=== PATIENT | female | born 1955 | race African-American/Black ===

== ENCOUNTER 2017-03-09 17:00 | Emergency (ER) | payer BC ==
[2017-03-09 17:11] VITALS: BP 151/73; BMI 31.3
--- NOTE | 2017-03-09 17:30 | DR.EXTPAIN ---
HPI - Time seen Time seen: 17:30 - PCP Primary Care Physician: STEPHANIE LUNA - HPI Comment HPI Comment: HISTORY BELOW. - Complaint/Symptoms Chief Complaint Doctor Comments: LT KNEE SWOLLEN AND PAINFULL TODAY. PAINFULL SINCE INJURY 2 MONTHS AGO. WORSE TODAY AND ALSO SWOLLEN TODAY. NO NEW INJURY. Chief Complaint:: PT C/O LEFT KNEE PAIN , PTS PAIN STARTED 3 MONTHS AGO WHEN HER BODY FELL OUT OF ALIGNMENT ,,,, Self Treatment fo Chief Complaint: LEG BAND , ICE , ALEIVE.. - Nurses notes reviewed Nurses Notes Review: Yes - Source History Provided: Patient - Mode of arrival Mode of Arrival: Ambulatory - Timing Onset of Chief Complaint: 12/08/16 - Context History of: None - Associated signs and symptoms Associated Signs and Symptoms: Pain, Swelling PMH - PMH Past Medical History: Yes Past Medical History: Hypertension Past Surgical History: Yes Surgical History: Hysterectomy Past Surgical History Comment: LYMPHOME - Family History History of Family Medical Conditions: No - Social History Does patient currently use any type of tobacco product: No Have you used tobacco products in the last 12 months: No Type of Tobacco Use: None Does any household member use tobacco: No Alcohol Use: None Do you use any recreational Drugs:: No Lives With: Family Lives Where: Home - infectious screening In the last 2 months have you had wt loss of >10#?: NO Have you had fever, night sweats or hemotysis?: No Have you traveled outside the country in the last 6 months?: No Isolation: Standard ROS - Review of Systems Constitutional: No Symptoms Reported Eyes: No Symptoms Reported ENTM: No Symptoms Reported Respiratoy: No Symptoms Reported Cardiovascular: No Symptoms Reported Gastrointestinal/Abdominal: No Symptoms Reported Genitourinary: No Symptoms Reported Neurological: No Symptoms Reported Musculoskeletal: Joint Pain, Joint Swelling, Muscle Pain, Left, Knee Integumentary: No Symptoms Reported Hematologic/Lymphatic: No Symptoms Reported Endocrine: No Symptoms Reported All Other Systems: Reviewed and Negative PE - Vital Signs Vitals: Temperature 98.0 F Pulse Rate 94 Respiratory Rate 22 Blood Pressure 151/73 O2 Sat by Pulse Oximetry 100 - General Limitations: No Limitations General Appearance: Alert - Head Head Exam: Normal Inspection - Eyes Eye exam: Normal Appearance - ENT ENT Exam: Normal External Ear Exam - Neck Neck Exam: Normal Inspection - Chest Chest Inspection: Symmetric Chest Wall Rise - Respiratory Respiratory Exam: Normal Lung Sounds Bilat Respiratory Exam: Bilateral Clear to Auscultation - Cardiovascular Cardiovascular Exam: Regular Rate, Normal Rhythm, Irregular Rhythm - Abdominal Exam Abdominal Exam: Normal Inspection - Extremities Extremities Exam: Full ROM, Tenderness (TENDERNESS LT KNEE), Joint Swelling (LT KNEE SWOLLEN) - Lower Extremities Neurovascular/Tendon Exam: Normal Capillary Refill Gait Exam: Observed & Limited by Pain - Back Back Exam: Normal Inspection - Neurological Neurological Exam: Alert, Oriented X3 - Psychiatric Psychiatric Exam: Normal Affect, Normal Mood - Skin Skin Exam: Erythema MDM - Differential Diagnosis Differential Diagnosis: Contusion, Fracture, Sprain Course - Treatment Treatment: SEE ORDERS - Education/Counseling Education/Counseling: Patient, Education Educated On: Treatment, Diagnosis, Needs for Follow Up ROR - XRAY XRAY Interpreted by: Radiologist XRAY Findings: REPORT DISCUSS WITH PATIENT. - Diagnosis Discharge Problem: Sprain of left knee - Discharge Plan Disposition: 01 HOME, SELF-CARE Condition: Stable Prescriptions: Ibuprofen [MOTRIN TAB 600 MG *] 600 mg PO TID PRN #20 tab PRN Reason: Pain/Inflammation Tramadol HCl 50 mg PO TID #15 tablet - Follow ups/Referrals Follow ups/Referrals: JAMAL BROWN [Primary Care Provider] - 3 days - Instructions Instructions: Knee Sprain, [id number] Additional Instructions: return to ed if worse.
--- NOTE | 2017-03-09 18:01 | RAD ---
HISTORY: Trauma. Study: Four views of the left knee. Comparison: None. Findings: No evidence for acute cortical disruption or dislocation. Mild tricompartmental osteoarthritis. No significant joint effusion. IMPRESSION: No acute osseous abnormality. Reported By:
== END 2017-03-09 18:39 | disposition home or self-care (01) ==
LOC: ER 17:19
DX: S83.92XA Sprain of unspecified site of left knee, initial encounter (principal); Y33.XXXA Other specified events, undetermined intent, initial encounter; Y92.9 Unspecified place or not applicable
CPT/HCPCS: 73564; 99282